=== PATIENT | female | born 1995 | race Caucasian/White ===

== ENCOUNTER 2019-01-03 17:45 | Emergency (ER) | payer OTHER ==
[~2019-01-03] VITALS: Ht 177.8 cm; Wt 93.0 kg
[2019-01-03 17:52] VITALS: BP 134/87; Ht 177.8 cm; Wt 93.0 kg
== END 2019-01-03 18:55 | disposition home or self-care (01) ==
LOC: ED 17:45
DX: F31.9 Bipolar disorder, unspecified (principal); Z76.0 Encounter for issue of repeat prescription; E11.9 Type 2 diabetes mellitus without complications